=== PATIENT | male | born 1990 | race Caucasian/White ===

== ENCOUNTER 2020-04-22 21:21 | Emergency (ER) | payer BC ==
[~2020-04-22] VITALS: Ht 195.6 cm; Wt 104.3 kg
[2020-04-22 21:40] VITALS: BP_SYST 148
--- NOTE | 2020-04-22 21:40 | NUR ---
Placed in room 8 . Placed on director pharmaceutical, blood pressure machine and pulse oximeter. To gown for exam. Side rails up.
--- NOTE | 2020-04-22 21:50 | NUR ---
Pt presents to the ER for laceration to the R eyebrow w/ some eye redness x tonight around 2039. Pt states he was grabbing a box and glass cutt his R eyebrow. Bleeding controlled. Denies any pain, foreign object in eye. Pt reports getting tetnus shot.
--- NOTE | 2020-04-22 22:23 | NUR ---
right eyebrow lac, cleaned with betadine and saline. bleeding controlled.
--- NOTE | 2020-04-22 23:25 | NUR ---
Pt alert and oriented. no distress noted.
--- NOTE | 2020-04-22 23:29 | NUR ---
ER Dr. Arriola at bedside examining patient.
[2020-04-22] MEDS: LIDOCAINE 1% 10 MG/ML, 20 ML MDV INJ ONE (23:49)
[2020-04-23 00:27] VITALS: BP_SYST 148
--- NOTE | 2020-04-23 00:29 | NUR ---
Site to right eyebrow cleansed with betadine and sterile water. Site measures approximately 1cm. bacitracin oint. applied applied. Tetanus vaccination current.
--- NOTE | 2020-04-23 00:31 | NUR ---
Patient given written and verbal discharge instructions and verbalizes understanding. ER MD Dr. Arriola discussed with patient the results and treatment provided. Patient in stable condition. ID arm band removed. Patient educated on pain management and to follow up with PMD. Pain Scale 1/10. Opportunity for questions provided and answered. Medication side effect fact sheet provided.
== END 2020-04-23 00:31 | disposition home or self-care (01) ==
LOC: SED 21:21
DX: S01.112A Laceration without foreign body of left eyelid and periocular area, initial encounter (principal); W26.8XXA Contact with other sharp object(s), not elsewhere classified, initial encounter; Y93.89 Activity, other specified; Y92.89 Other specified places as the place of occurrence of the external cause; Y99.8 Other external cause status
CPT/HCPCS: 99282